=== PATIENT | female | born 1970 | race Two or more races ===

== ENCOUNTER 2017-12-04 21:41 | Outpatient (CLI) | payer OTHER ==
[~2017-12-04 21:41] MED LIST: PRENATAL TABLE1 EAC1
== END 2017-12-05 15:51 | disposition home or self-care (01) ==
LOC: OBS/DEL 21:41
DX: O26.893 Other specified pregnancy related conditions, third trimester (principal); Z04.3 Encounter for examination and observation following other accident; Z34.83 Encounter for supervision of other normal pregnancy, third trimester; W18.39XA Other fall on same level, initial encounter; Y93.89 Activity, other specified; Y92.89 Other specified places as the place of occurrence of the external cause; Y99.8 Other external cause status